=== PATIENT | female | born 1955 | race African-American/Black ===

== ENCOUNTER 2016-10-03 13:59 | Emergency (ER) | payer MEDICARE, OTHER ==
--- NOTE | 2016-10-03 14:52 | ERRECORD ---
[facility] EMERGENCY RECORD HPI TOOTHACHE (14:42 RWAG) CHIEF COMPLAINT: Patient presents for evaluation of toothache. HISTORIAN: History provided by patient. LOCATION: Symptoms are localized, most severe to "whole mouth" Widespread dental decay. QUALITY: Described as similar to previous episodes. SEVERITY: Maximum severity of symptoms mild, Currently symptoms are mild. TIME COURSE: Patient unable to describe onset of symptoms, There has been no change in the patient's symptoms over time. ASSOCIATED WITH: No associated symptoms. EXACERBATED BY: Patient's condition exacerbated by nothing. RELIEVED BY: Nothing tried for relief. ROS (14:43 RW) CONSTITUTIONAL: Negative constitutional review of systems. EYES: Negative eye review of systems. ENT: Negative ears, nose, throat review of systems. CARDIOVASCULAR: Negative cardiovascular review of systems. RESPIRATORY: Negative respiratory review of systems. GI: Negative gastrointestinal review of systems. GENITOURINARY FEMALE: Negative genitourinary review of systems. MUSCULOSKELETAL: Negative musculoskeletal review of systems. SKIN: Negative skin review of systems. NEUROLOGIC: Negative neurologic review of systems. ENDOCRINE: Negative endocrine review of systems. HEMO/LYMPHATIC: Normal hematologic/lymphatic system review. ALLERGIC/IMMUNOLOGIC: Normal allergy/immunologic system review. PSYCHIATRIC: Negative psychiatric review of systems. NOTES: All systems reviewed, negative except as described above. PAST MEDICAL HISTORY (14:15 [facility]) MEDICAL HISTORY: Flu vaccine not up to date, Tetanus immunization up to date, Pneumococcal vaccine not up to date, Past medical history includes history of hypertension, which has been treated, Patient is compliant, Past medical history includes history of hyperlipidemia, high cholesterol, Past medical history includes history of hypertension, which has been treated. FEMALE SURGICAL HISTORY: Surgical history of appendectomy, Surgical history of hernia repair, Surgical history of tubal ligation, LEFT ANKLE (JANUARY 2016), BLIAT TUBAL LIGATION, Surgical history of appendectomy, Surgical history of carpal tunnel surgery, Surgical history of hernia repair. PSYCHIATRIC HISTORY: Psychiatric history includes, bipolar disorder, depression, BIPOLAR. SOCIAL HISTORY: Patient denies alcohol use, Patient is a former drug user, abused CRACK cocaine, Patient has no smoking history, Lives at home, with family, Patient denies alcohol use, Patient is a former drug user. &a-1R&a+25V*p+0X*s5626E*c202B*c15G*c2P*p-0X&a-25V&a+1R Name: Pura Douglas : 1955 F61 MedRec: [id number] AcctNum: [id number] Prepared: ThuOct 03, 2016 16:17 by Interface Page 1 of 3 pMD [facility] EMERGENCY RECORD KNOWN ALLERGIES No Known Allergies (Unconfirmed) No Known Drug Allergies CURRENT MEDICATIONS doxepin: CAPSULE : Strength - 75 mg : ORAL Patient Dose: 75 mg Oral once a day. (14:11 CJ) RisperDAL: TABLET : Strength - 2 mg : ORAL Patient Dose: 5 mg Oral once a day. (14:11 CJ) CeleXA: TABLET : Strength - 20 mg : ORAL Patient Dose: Unknown. (14:12 CJEF) lisinopril: TABLET : Strength - 2.5 mg : ORAL Patient Dose: UNK mg Oral once a day. (14:12 CJ) VITAL SIGNS (14:07 CJ) VITAL SIGNS: BP: 164/90, Pulse: 118, Resp: 18, Temp: 99 (Oral), Pain: 10, O2 sat: 96 on Room Air, Time: 10/03/2016 14:07. PHYSICAL EXAM (14:43 RW) CONSTITUTIONAL: Vital signs reviewed. HEAD: Head exam normal. EYES: Eye exam normal. ENT: Ear exam normal, Nose exam normal, Pharynx exam normal, Uvula exam normal, Tonsil exam normal, Teeth with, dental caries. NECK: Neck exam normal. RESPIRATORY CHEST: Respiratory and chest exam normal. CARDIOVASCULAR: Cardiovascular assessment normal. ABDOMEN FEMALE: Abdominal exam normal. BACK: Back exam normal. UPPER EXTREMITY: Upper extremity exam normal. LOWER EXTREMITY: Lower extremity exam normal. NEURO: Neuro exam normal. SKIN: Skin exam normal. LYMPHATIC: Lymphatic exam normal. PSYCHIATRIC: Psychiatric exam normal. MEDICATION ADMINISTRATION SUMMARY Drug Name: [place], Dose Ordered: 1 tab(s), Route: Oral, Status: Held, Time: 14:39 10/03/2016, Detailed record available in Medication Service section. PROBLEM LIST No recorded problems &a-1R&a+25V*p+0X*y0285V*c202B*c15G*c2P*p-0X&a-25V&a+1R Name: Pura Douglas : 1955 F61 MedRec: [id number] AcctNum: [id number] Prepared: ThuOct 03, 2016 16:17 by Interface Page 2 of 3 pMD [facility] EMERGENCY RECORD DIAGNOSIS (14:29 RW) FINAL: PRIMARY: Dental caries. PRESCRIPTION (14:28 RW) Cipro tablet: TABLET : 500 mg : ORAL : Quantity: 1 Unit: tab(s) Route: ORAL Schedule: every 12 hours Dispense: 14 Unit: tab(s) May substitute. Refills: No Refills . NOTES: No Refills. Ultram: TABLET : 50 mg : ORAL : Quantity: 2 Unit: tab(s) Route: ORAL Schedule: every 6 hours PRN Dispense: 20 Unit: tab(s) May substitute. Refills: No Refills POTENTIAL SEVERE INTERACTION: doxepin oral Override Rationale: Benefits outweigh risks, No alternative available, Patient tolerated similar in past. NOTES: No Refills. DISPOSITION PATIENT: Disposition Type: Discharge, Disposition: *Discharge Home, Disposition Transport: Car, Condition: Improved. (14:29 [facility]) Patient left the department. (14:41 [facility]) Alex: FELIPA=ANDRE Curtis, Riana RWAG=MD Damian, Carlo &a-1R&a+25V*p+0X*m4528T*c202B*c15G*c2P*p-0X&a-25V&a+1R Name: Pura Douglas : 1955 F61 MedRec: [id number] AcctNum: [id number] Prepared: ThuOct 03, 2016 16:17 by Interface Page 3 of 3 pMD MTDD
--- NOTE | 2016-10-03 15:02 | PICIS ---
[facility] EMERGENCY RECORD TRIAGE (ThuOct 03, 2016 14:11 CJEF) TRIAGE NOTES: PT REPORTS ENTIRE TEETH PAIN, UPPER AND LOWER. PT WITH MULTIPLE AVULSED AND BROKEN TEETH THROUGH ENTIRE MOUTH. PT REPORTS THAT SHE HAS BEEN WITH PAIN FOR X3 DAYS AND HAS BEEN TRYING TO FIND A DENTIST WHO TAKES HER INSURANCE. PT REPORTS THAT THE PAIN ALSO EXTENDS TO THE LEFT CHEEK. PT REPORTS THAT SHE HAS TAKEN TRAZADONE, TYLENOL 3,AND TRAMADOL WITH NO RELIEF TO THE PAIN. PT WITH PHMX OF "CRACK' USE. (ThuOct 03, 2016 14:11 CJEF) PATIENT: NAME: Pura Douglas, AGE: 61, GENDER: female, : Sun 1955, TIME OF GREET: ThuOct 03, 2016 14:00, PREFERRED LANGUAGE: Greek, ETHNICITY: Not or , FALL RISK: YES, ECODE BILLING MAP: [facility], SSN: [id number], Zip Code: [address], KG WEIGHT: 68.04, PHONE: , , , PERSON ID: [id number], PCP: MD Allen Olayemi. (ThuOct 03, 2016 14:11 CJEF) COMPLAINT: TOOTH PAIN. (ThuOct 03, 2016 14:11 CJEF) ADMISSION: URGENCY: 4 Non Urgent, ADMISSION SOURCE: Home, TRANSPORT: Walk-in, BED: TRIAGE. (ThuOct 03, 2016 14:11 CJEF) ASSESSMENT: Assessment: TEETH PAIN. (14:15 CJEF) PAIN: Patient complains of pain described as, Location TEETH. (14:15 CJEF) IMMUNIZATIONS: Flu vaccine not up to date, Tetanus immunization up to date, Pneumococcal vaccine not up to date. (14:15 CJEF) SIRS SCORING: Heart Rate 110-139 (2), Temp range 96.8-101.1 (0), respiratory rate 12-24 (0), Mental Status altered: no (0), Total SIRS Score 2, Yes, Infection or Suspected Infection. (14:15 CJEF) SIRS NOTIFICATION: Yes, Infection or Suspected Infection. (14:15 CJEF) TRIAGE SCREENING: Patient denies suicidal ideation, Patient denies presence of domestic violence. (14:15 CJEF) LMP: LMP: Menopause. (14:15 CJEF) PROVIDERS: TRIAGE NURSE: Riana Curtis RN. (ThuOct 03, 2016 14:11 CJEF) VITAL SIGNS: BP 164/90, Pulse 118, Resp 18, Temp 99, (Oral), Pain 10, O2 Sat 96, on Room Air, Time 10/03/2016 14:07. (14:07 CJEF) PREVIOUS VISIT ALLERGIES: No Known Drug Allergies. (ThuOct 03, 2016 14:11 CJEF) No Known Drug Allergies. (14:15 CJEF) KNOWN ALLERGIES No Known Allergies (Unconfirmed) No Known Drug Allergies CURRENT MEDICATIONS doxepin: CAPSULE : Strength - 75 mg : ORAL Patient Dose: 75 mg Oral once a day. (14:11 CJEF) RisperDAL: &a-1R&a+25V*p+0X*f5108O*c202B*c15G*c2P*p-0X&a-25V&a+1R Name: Pura Douglas Lea : 1955 F61 MedRec: [id number] AcctNum: [id number] Prepared: ThuOct 03, 2016 16:23 by Interface Page 1 of 5 pMD [facility] EMERGENCY RECORD TABLET : Strength - 2 mg : ORAL Patient Dose: 5 mg Oral once a day. (14:11 CJEF) CeleXA: TABLET : Strength - 20 mg : ORAL Patient Dose: Unknown. (14:12 CJEF) lisinopril: TABLET : Strength - 2.5 mg : ORAL Patient Dose: UNK mg Oral once a day. (14:12 CJEF) VITAL SIGNS (14:07 CJEF) VITAL SIGNS: BP: 164/90, Pulse: 118, Resp: 18, Temp: 99 (Oral), Pain: 10, O2 sat: 96 on Room Air, Time: 10/03/2016 14:07. NURSING ASSESSMENT: DENTAL (14:16 CJEF) CONSTITUTIONAL: Complex assessment performed, Patient arrives ambulatory, Gait steady, History obtained from patient, Patient appears, uncomfortable, Patient cooperative, Patient alert, Oriented to person, place and time, Skin warm, Skin dry, Skin normal in color, Mucous membranes pink, Mucous membranes moist, Patient, poorly groomed, PT REPORTS ENTIRE TEETH PAIN, UPPER AND LOWER. PT WITH MULTIPLE AVULSED AND BROKEN TEETH THROUGH ENTIRE MOUTH. PT REPORTS THAT SHE HAS BEEN WITH PAIN FOR X3 DAYS AND HAS BEEN TRYING TO FIND A DENTIST WHO TAKES HER INSURANCE. PT REPORTS THAT THE PAIN ALSO EXTENDS TO THE LEFT CHEEK. PT REPORTS THAT SHE HAS TAKEN TRAZADONE, TYLENOL 3,AND TRAMADOL WITH NO RELIEF TO THE PAIN. PT WITH PHMX OF "CRACK' USE. PAIN: aching pain, to left upper back tooth (teeth), to right upper back tooth (teeth), to upper teeth, to left lower back tooth (teeth), to right lower back tooth (teeth), to lower teeth, to the left upper jaw, to the right upper jaw, to the left lower jaw, right lower jaw, constant, on a scale 0-10 patient rates pain as 10, ALL OVER TEETH PAIN. DENTAL: Dental assessment findings include mouth with, poor dental hygiene, bad breath (halitosis), Teeth abnormal:, avulsed primary tooth (teeth), avulsed secondary tooth (teeth), broken primary tooth (teeth), broken secondary tooth (teeth), loose primary tooth (teeth), loose secondary tooth (teeth), missing primary tooth (teeth), missing secondary tooth (teeth), gums tender. NOTES: Patient tolerated procedure well. SAFETY: Side rails up, Cart/Stretcher in lowest position, Family at bedside, Call light within reach, Hospital ID band on. NURSING PROCEDURE: DISCHARGE NOTE (14:40 [facility]) DISCHARGE: Patient discharged to home, ambulating without assistance, driving self, unaccompanied, Summary of Care printed/ provided, Patient requested and was provided an electronic copy of &a-1R&a+25V*p+0X*h5451J*c202B*c15G*c2P*p-0X&a-25V&a+1R Name: Pura Douglas : 1955 F61 MedRec: [id number] AcctNum: [id number] Prepared: ThuOct 03, 2016 16:23 by Interface Page 2 of 5 pMD [facility] EMERGENCY RECORD Discharge Instructions, Transition record given to patient, Discharge instructions given to patient, Simple or moderate discharge teaching performed, Prescriptions given and instructions on side effects given, Medication reconciliation form given, Above person(s) verbalized understanding of discharge instructions and follow-up care, Patient treated and evaluated by physician. BELONGINGS: Belongings remain with patient. NOTES: Patient tolerated procedure well. SAFETY: Side rails up, Cart/Stretcher in lowest position, Family at bedside, Call light within reach, Hospital ID band on. MEDICATION ADMINISTRATION SUMMARY Drug Name: [place], Dose Ordered: 1 tab(s), Route: Oral, Status: Held, Time: 14:39 10/03/2016, Detailed record available in Medication Service section. MEDICATION SERVICE (14:26 RW) [place]: Order: [place] (hydrocodone bitartrate/acetaminophen) - Dose: 1 tab(s) : Oral Schedule: Now Ordered by: Carlo Salgado MD Entered by: Carlo Salgado MD ThuOct 03, 2016 14:26 , Held by: Riana Curtis RN ThuOct 03, 2016 14:39 Reason: Patient refused:NO RIDE HOME. HPI TOOTHACHE (14:42 RWAG) CHIEF COMPLAINT: Patient presents for evaluation of toothache. HISTORIAN: History provided by patient. LOCATION: Symptoms are localized, most severe to "whole mouth" Widespread dental decay. QUALITY: Described as similar to previous episodes. SEVERITY: Maximum severity of symptoms mild, Currently symptoms are mild. TIME COURSE: Patient unable to describe onset of symptoms, There has been no change in the patient's symptoms over time. ASSOCIATED WITH: No associated symptoms. EXACERBATED BY: Patient's condition exacerbated by nothing. RELIEVED BY: Nothing tried for relief. ROS (14:43 RW) CONSTITUTIONAL: Negative constitutional review of systems. EYES: Negative eye review of systems. ENT: Negative ears, nose, throat review of systems. CARDIOVASCULAR: Negative cardiovascular review of systems. RESPIRATORY: Negative respiratory review of systems. GI: Negative gastrointestinal review of systems. GENITOURINARY FEMALE: Negative genitourinary review of systems. MUSCULOSKELETAL: Negative musculoskeletal review of systems. SKIN: Negative skin review of systems. &a-1R&a+25V*p+0X*h8734W*c202B*c15G*c2P*p-0X&a-25V&a+1R Name: Pura Douglas : 1955 F61 MedRec: [id number] AcctNum: [id number] Prepared: ThuOct 03, 2016 16:23 by Interface Page 3 of 5 pMD [facility] EMERGENCY RECORD NEUROLOGIC: Negative neurologic review of systems. ENDOCRINE: Negative endocrine review of systems. HEMO/LYMPHATIC: Normal hematologic/lymphatic system review. ALLERGIC/IMMUNOLOGIC: Normal allergy/immunologic system review. PSYCHIATRIC: Negative psychiatric review of systems. NOTES: All systems reviewed, negative except as described above. PAST MEDICAL HISTORY (14:15 [facility]) MEDICAL HISTORY: Flu vaccine not up to date, Tetanus immunization up to date, Pneumococcal vaccine not up to date, Past medical history includes history of hypertension, which has been treated, Patient is compliant, Past medical history includes history of hyperlipidemia, high cholesterol, Past medical history includes history of hypertension, which has been treated. FEMALE SURGICAL HISTORY: Surgical history of appendectomy, Surgical history of hernia repair, Surgical history of tubal ligation, LEFT ANKLE (JANUARY 2016), BLIAT TUBAL LIGATION, Surgical history of appendectomy, Surgical history of carpal tunnel surgery, Surgical history of hernia repair. PSYCHIATRIC HISTORY: Psychiatric history includes, bipolar disorder, depression, BIPOLAR. SOCIAL HISTORY: Patient denies alcohol use, Patient is a former drug user, abused CRACK cocaine, Patient has no smoking history, Lives at home, with family, Patient denies alcohol use, Patient is a former drug user. PHYSICAL EXAM (14:43 [facility]) CONSTITUTIONAL: Vital signs reviewed. HEAD: Head exam normal. EYES: Eye exam normal. ENT: Ear exam normal, Nose exam normal, Pharynx exam normal, Uvula exam normal, Tonsil exam normal, Teeth with, dental caries. NECK: Neck exam normal. RESPIRATORY CHEST: Respiratory and chest exam normal. CARDIOVASCULAR: Cardiovascular assessment normal. ABDOMEN FEMALE: Abdominal exam normal. BACK: Back exam normal. UPPER EXTREMITY: Upper extremity exam normal. LOWER EXTREMITY: Lower extremity exam normal. NEURO: Neuro exam normal. SKIN: Skin exam normal. LYMPHATIC: Lymphatic exam normal. PSYCHIATRIC: Psychiatric exam normal. EVENTS TRANSFER: Triage to Emergency Triage. (ThuOct 03, 2016 14:11 [facility]) Emergency Triage to Main ED -03. (14:15 [facility]) &a-1R&a+25V*p+0X*l5314E*c202B*c15G*c2P*p-0X&a-25V&a+1R Name: Pura Douglas : 1955 F61 MedRec: [id number] AcctNum: [id number] Prepared: ThuOct 03, 2016 16:23 by Interface Page 4 of 5 pMD [facility] EMERGENCY RECORD Removed from Emergency Main ED -03. (14:41 CJ) PROBLEM LIST No recorded problems DIAGNOSIS (14:29 RWAG) FINAL: PRIMARY: Dental caries. DISPOSITION PATIENT: Disposition Type: Discharge, Disposition: *Discharge Home, Disposition Transport: Car, Condition: Improved. (14:29 RWAG) Patient left the department. (14:41 CJ) INSTRUCTION (14:29 RWAG) DISCHARGE: DENTAL PAIN. FOLLOWUP: MD Tiffany, Sae, [facility], [address] [place] [address], , Follow up with Primary Care Physician in 5 days. SPECIAL: Follow-up with your PCP. PRESCRIPTION (14:28 RWAG) Cipro tablet: TABLET : 500 mg : ORAL : Quantity: 1 Unit: tab(s) Route: ORAL Schedule: every 12 hours Dispense: 14 Unit: tab(s) May substitute. Refills: No Refills . NOTES: No Refills. Ultram: TABLET : 50 mg : ORAL : Quantity: 2 Unit: tab(s) Route: ORAL Schedule: every 6 hours PRN Dispense: 20 Unit: tab(s) May substitute. Refills: No Refills POTENTIAL SEVERE INTERACTION: doxepin oral Override Rationale: Benefits outweigh risks, No alternative available, Patient tolerated similar in past. NOTES: No Refills. IMAGING (14:42 [facility]) *DISCHARGE INSTRUCTIONS RECEIPT: Image captured from scanner. *SUPPLY CHARGE SHEET: Image captured from scanner. ADMIN (16:14 RW) DIGITAL SIGNATURE: MD Damian, Carlo. Alex: [facility]=ANDRE Curtis, Riana RWAG=MD Damian, Carlo &a-1R&a+25V*p+0X*p5272J*c202B*c15G*c2P*p-0X&a-25V&a+1R Name: Pura Douglas : 1955 F61 MedRec: [id number] AcctNum: [id number] Prepared: ThuOct 03, 2016 16:23 by Interface Page 5 of 5 pMD [facility] MEDICATION RECONCILIATION You were seen in the Emergency Department on: ThuOct 03, 2016 KNOWN ALLERGIES No Known Allergies (Unconfirmed) No Known Drug Allergies HOME MEDICATIONS CONTINUE PRESCRIBED CeleXA : TABLET : Strength - 20 mg : ORAL Continue as prescribed Patient had been taking: Dose unknown doxepin : CAPSULE : Strength - 75 mg : ORAL Continue as prescribed Patient had been takin mg Oral once a day. lisinopril : TABLET : Strength - 2.5 mg : ORAL Continue as prescribed Patient had been taking: UNK mg Oral once a day. RisperDAL : TABLET : Strength - 2 mg : ORAL Continue as prescribed Patient had been takin mg Oral once a day. Notes from the emergency department Reviewed with patient PRESCRIPTIONS (2) Printed (2) Cipro tablet : TABLET : 500 mg : ORAL Quantity: 1, Unit: tab(s), Route: ORAL, Schedule: every 12 hours, Dispense: 14 Unit: tab(s) &a-1R&a+25V*p+0X*o9190T*c202B*c15G*c2P*p-0X&a-25V&a+1R Name: Pura Douglas : 1955 F61 MedRec: [id number] AcctNum: [id number] Prepared: ThuOct 03, 2016 16:23 by Interface pMD KASI
== END 2016-10-03 14:40 | disposition home or self-care (01) ==
LOC: MADERS 13:59
DX: K02.9 Dental caries, unspecified (principal); I10 Essential (primary) hypertension; E78.5 Hyperlipidemia, unspecified; F31.9 Bipolar disorder, unspecified; F32.9 Major depressive disorder, single episode, unspecified; Z79.899 Other long term (current) drug therapy
CPT/HCPCS: 99282

== ENCOUNTER 2017-03-04 16:07 | Outpatient (CLI) | payer MEDICARE ==
--- NOTE | 2017-03-04 17:07 | CT ---
CT OF THE LEFT HINDFOOT 03/04/17 CLINICAL HISTORY: Prior fracture with subsequent fixation. FINDINGS: There is plate and screw fixation with laterally located metallic plate and several metallic screws traversing the anterior and posterior aspect of the calcaneus. Multifocal degenerative cyst formatio n is present involving the postoperative calcaneus, as well as in the hindfoot and midfoot. Focal re lative demineralization involving the lateral aspect of the talar dome is present without associated subchondral collapse. Lisfranc joint is maintained. Scattered soft tissue edema. There is a heterot opic density adjacent the cuboid, well circumscribed, and chronic in appearance. IMPRESSION: Postoperative left hindfoot. The fixated, healed fracture demonstrates near anatomic alignment. There is multifocal degenerative cyst formation. No obvious hardware complication is seen within kumari itations, as there is prominent streak artifact. POS: [facility]
== END 2017-03-04 16:08 | disposition home or self-care (01) ==
LOC: MADRAD 16:07
PROVIDERS: ATTEND Orthopaedic Surgery
DX: S92.002D Unspecified fracture of left calcaneus, subsequent encounter for fracture with routine healing (principal)

== ENCOUNTER 2017-06-18 14:14 | Outpatient (CLI) | payer MEDICARE ==
--- NOTE | 2017-06-18 16:50 | RAD ---
LEFT FOOT RADIOGRAPHS THREE VIEWS: 06/18/17 PROVIDED CLINICAL HISTORY: Postop. FINDINGS: Comparison 04/03/16. Interval removal of the plate and screws previously seen. Interval placement of two large partially threaded cannulated lag screws traversing the calcaneus and subtalar joint regions. There is diffuse regional osteopenia. There is no evidence for an acute fracture or other acute osseous abnormality. IMPRESSION: Interval postsurgical changes as above. POS: [facility]
== END 2017-06-18 14:15 | disposition home or self-care (01) ==
LOC: MADRAD 14:14
PROVIDERS: ATTEND Orthopaedic Surgery
DX: M95.8 Other specified acquired deformities of musculoskeletal system (principal); Z98.890 Other specified postprocedural states

== ENCOUNTER 2017-08-13 13:28 | Outpatient (CLI) | payer MEDICARE ==
--- NOTE | 2017-08-13 15:08 | RAD ---
3 VIEWS LEFT FOOT: Date: 08/13/17 INDICATION: Left foot pain. FINDINGS: The two separate lag screws fixating the patient's healed calcaneal fracture is unchanged. Scattered osteoarthritic change is similar appearing. No acute osseous abnormality is evident. IMPRESSION: Stable postoperative left foot. No acute osseous abnormality. POS: [facility]
== END 2017-08-13 13:29 | disposition home or self-care (01) ==
LOC: MADRAD 13:28
PROVIDERS: ATTEND Orthopaedic Surgery
DX: Z87.81 Personal history of (healed) traumatic fracture (principal); Z98.890 Other specified postprocedural states

== ENCOUNTER 2018-07-06 15:02 | Emergency (ER) | payer MEDICARE, OTHER | END 2018-07-06 16:00 | disposition home or self-care (01) | LOC: MADERS 15:02 | DX: K02.9 Dental caries, unspecified (principal); I10 Essential (primary) hypertension; K21.9 Gastro-esophageal reflux disease without esophagitis; E78.5 Hyperlipidemia, unspecified; F31.9 Bipolar disorder, unspecified; Z79.899 Other long term (current) drug therapy | CPT/HCPCS: 99282 ==

== ENCOUNTER 2018-07-26 10:26 | Emergency (ER) | payer MEDICARE | END 2018-07-26 11:20 | disposition home or self-care (01) | LOC: MADERS 10:26 | DX: M79.661 Pain in right lower leg (principal); M25.561 Pain in right knee; K21.9 Gastro-esophageal reflux disease without esophagitis; I10 Essential (primary) hypertension; E78.5 Hyperlipidemia, unspecified; F31.9 Bipolar disorder, unspecified; Z79.899 Other long term (current) drug therapy | CPT/HCPCS: 99283 ==

== ENCOUNTER 2018-11-19 16:52 | Emergency (ER) | payer MEDICARE ==
[~2018-11-19 16:52] MED LIST: NS 0.9% w/ 20 MEQ KCL 1,000 ML BAG ONE
[2018-11-19] MEDS ORDERED: Sodium Chloride 0.9% 1,000 ML ONE (17:59)
[2018-11-19] MEDS ORDERED: Metoclopramide HCl 10 MG/2 ML VIAL ONE (18:00)
--- NOTE | 2018-11-19 18:11 | RAD ---
CHEST ONE VIEW 11/19/18 INDICATION: Syncope. COMPARISON: None. FINDINGS: The lungs are clear. Heart size is normal. No acute osseous abnormality is noted. IMPRESSION: No acute cardiopulmonary abnormality. POS: [facility]
--- NOTE | 2018-11-19 18:12 | CT ---
CT BRAIN NONCONTRAST: 11/19/18 HISTORY: 63-year-old female status post syncope. FINDINGS: There is no midline shift or any other mass effect. There is no evidence of acute intracranial hemor rhage, large cortical infarct, obstructive hydrocephalus, or extraaxial fluid collection. The calvar ium is intact. IMPRESSION: No acute intracranial findings. jn [] POS: [facility]
[2018-11-19 18:45] LABS: #Lymphocytes 1.7 thou/uL (1.20-3.40); #Monocytes 0.7 thou/uL (0.11-0.59); #Neutrophils 4.8 thou/uL (1.40-6.50); %Basophils 0.7 % (0.0-1.0); %Eosinophils 0.4 % (0.0-10.0); %Lymphocytes 23.9 % (21.0-51.0); %Monocytes 8.9 % (0.0-10.0); %Neutrophils 66.1 % (42.0-75.0); Hemoglobin 12.5 g/dL (12.0-16.0); Mean Corpuscular HGB CONC 33.5 g/dL (32.0-36.0); Mean Corpuscular Hemoglobin 32.2 pg (27.0-31.0); Mean Corpuscular Volume 96.2 fL (78.0-98.0); Mean Platelet Volume 6.8 fL (7.4-10.4); Platelet Count 270 thou/uL (130-400); RBC Distribution Width 13.4 % (11.5-14.5); Red Blood Cell (RBC) Count 3.88 mill/uL (4.20-5.40); White Blood Cell (WBC) Count 7.3 thou/uL (4.8-10.8)
[2018-11-19 18:54] LABS: ALT (SGPT) 19 U/L (8-55); AST (SGOT) 32 U/L (5-34); Acetaminophen Less than 6.0 mcg/mL (10.0-30.0); Albumin 3.5 g/dL (3.4-4.8); Alcohol Less than 10 mg/dL (Less than 10); Alkaline Phosphatase 75 U/L (40-150); Anion Gap 14 mmol/L (10-20); BUN (Urea Nitrogen) Less than 4 mg/dL (9.8-20.1); Bilirubin, Total 0.3 mg/dL (0.2-1.2); Calc. Creatinine Clearance 0 mL/min (70-130); Calcium 8.8 mg/dL (7.8-10.44); Carbon Dioxide 24 mmol/L (23-31); Chloride 108 mmol/L (98-107); Estimated GFR-MDRD 60; Globulin 3.1 g/dL (2.4-3.5); Glucose 116 mg/dL (80-115); Protein, Total 6.6 g/dL (6.0-8.3); Salicylate Less than 8.0 mg/dL (15.0-30.0); Sodium 143 mmol/L (136-145)
[2018-11-19 19:16] LABS: Bilirubin Negative (Negative); Blood, Urine Negative (Negative); Clarity Clear (Clear); Glucose, Urine (Dipstick) Negative (Negative); Leukocyte Negative (Negative); Nitrite Negative (Negative); Protein, Urine (Dipstick) Negative (Neg-Trace); Urobilinogen 0.2 mg/dL (0.2-1.0)
[2018-11-19] MEDS ORDERED: Potassium Chloride 20 MEQ TAB ONE (19:18)
[2018-11-19 19:28] LABS: Amphetamine Not Detected (NotDetected); Barbiturates Screen Not Detected (NotDetected); Benzodiazepine Screen Not Detected (NotDetected); Cocaine Metabolite Screen Detected (NotDetected); Medtox Control Line Valid? VALID (VALID); Methadone Not Detected (NotDetected); Methamphetamine Not Detected (NotDetected); Opiate Screen Not Detected (NotDetected); Oxycodone Screen Not Detected (NotDetected); Phencyclidine (PCP) Not Detected (NotDetected); THC/Cannabinoid Screen Not Detected (NotDetected); Tricyclic Screen Detected (NotDetected)
== END 2018-11-19 21:10 | disposition short-term general hospital (02) ==
LOC: MADERS 16:52
DX: I45.81 Long QT syndrome (principal); R55 Syncope and collapse; R94.31 Abnormal electrocardiogram [ECG] [EKG]; K21.9 Gastro-esophageal reflux disease without esophagitis; I10 Essential (primary) hypertension; E78.5 Hyperlipidemia, unspecified; F31.9 Bipolar disorder, unspecified; Z79.899 Other long term (current) drug therapy
CPT/HCPCS: 36415; 51701; 70450; 71045; 80053; 80306; 80307; 81003; 83605; 83735; 84484; 85025; 87040; 93005; 94760; 96361; 96374; A4353; J2765; J7050

== ENCOUNTER 2020-02-21 12:26 | Outpatient (CLI) | payer MEDICARE ==
--- NOTE | 2020-02-21 14:25 | RAD ---
CERVICAL SPINE 5 VIEWS: HISTORY: Back pain. FINDINGS: Very pronounced hypertrophic osteophytes are seen from the cervical vertebrae. These produce mass ef fect on the prevertebral space and hypopharynx. Large anterior bridging osteophytes are seen at the C3-4, C4-5, C5-6 levels. Loss of disk space at C3-4. Disk space narrowing at the C6-7 disk. IMPRESSION: Pronounced hypertrophic spurring from the anterior cervical vertebrae with large anterior bridging os teophytes which produce mass effect on the hypopharynx. POS: [facility]
== END 2020-02-21 12:27 | disposition home or self-care (01) ==
LOC: MADRAD 12:26
PROVIDERS: ATTEND Family Medicine
DX: S13.9XXA Sprain of joints and ligaments of unspecified parts of neck, initial encounter (principal); M46.02 Spinal enthesopathy, cervical region; M25.78 Osteophyte, vertebrae
CPT/HCPCS: 72050

== ENCOUNTER 2020-08-28 03:44 | Emergency (ER) | payer MEDICARE ==
[2020-08-28] MEDS ORDERED: Sodium Chloride 0.9% 1,000 ML ONE (04:03)
[2020-08-28] MEDS ORDERED: Aspirin Chewable 81 MG TAB ONE (04:11)
[2020-08-28 04:29] LABS: #Basophils 0.1 thou/uL (0.0-0.2); #Eosinphils 0.1 thou/uL (0.0-0.7); #Lymphocytes 2.1 thou/uL (1.20-3.40); #Monocytes 0.5 thou/uL (0.11-0.59); #Neutrophils 2.3 thou/uL (1.40-6.50); %Basophils 1.5 % (0.0-1.0); %Eosinophils 2.1 % (0.0-10.0); %Monocytes 10.4 % (0.0-10.0); Mean Corpuscular Hemoglobin 31.8 pg (27.0-31.0); Mean Corpuscular Volume 96.4 fL (78.0-98.0); Platelet Count 256 thou/uL (130-400); RBC Distribution Width 12.5 % (11.5-14.5); Red Blood Cell (RBC) Count 3.78 mill/uL (4.20-5.40); White Blood Cell (WBC) Count 5.1 thou/uL (4.8-10.8)
[2020-08-28 04:44] LABS: ALT (SGPT) 28 U/L (8-55); AST (SGOT) 34 U/L (5-34); Albumin 3.8 g/dL (3.4-4.8); Alkaline Phosphatase 74 U/L (40-110); Anion Gap 15 mmol/L (10-20); BUN (Urea Nitrogen) 27 mg/dL (9.8-20.1); Bilirubin, Total 0.3 mg/dL (0.2-1.2); CK (CPK) 50 U/L (29-168); Calc. Creatinine Clearance 0 mL/min (70-130); Calcium 8.9 mg/dL (7.8-10.44); Carbon Dioxide 21 mmol/L (23-31); Chloride 106 mmol/L (98-107); Globulin 3.7 g/dL (2.4-3.5); Glucose 104 mg/dL (80-115); Protein, Total 7.5 g/dL (6.0-8.3); Sodium 138 mmol/L (136-145)
[2020-08-28 05:14] LABS: CKMB 0.8 ng/mL (0-6.6)
[2020-08-28 05:43] LABS: Bilirubin Negative (Negative); Blood, Urine Negative (Negative); Clarity Clear (Clear); Glucose, Urine (Dipstick) Negative (Negative); Ketone, Urine Negative (Negative); Leukocyte Negative (Negative); Nitrite Negative (Negative); Protein, Urine (Dipstick) Negative (Neg-Trace); Urobilinogen 0.2 mg/dL (Less than 2)
[2020-08-28 05:47] LABS: Specific Gravity, Urine 1.005 (1.002-1.036)
[2020-08-28 05:57] LABS: Amphetamine Not Detected (NotDetected); Barbiturates Screen Not Detected (NotDetected); Benzodiazepine Screen Not Detected (NotDetected); Cocaine Metabolite Screen Detected (NotDetected); Medtox Control Line Valid? VALID (VALID); Methadone Not Detected (NotDetected); Methamphetamine Not Detected (NotDetected); Opiate Screen Detected (NotDetected); Oxycodone Screen Not Detected (NotDetected); Phencyclidine (PCP) Not Detected (NotDetected); THC/Cannabinoid Screen Not Detected (NotDetected); Tricyclic Screen Not Detected (NotDetected)
[2020-08-28] MEDS ORDERED: Acetaminophen 500 MG TAB ONE (06:30)
--- NOTE | 2020-08-28 08:16 | CT ---
PRELIMINARY REPORT/[facility]/EMERGENCY AFTER HOURS PROCEDURE: EXAM: CT Head Without Intravenous Contrast. CLINICAL HISTORY: ER PATIENT; BROUGHT IN BY AMBULANCE DUE TO ALTERED MENTAL STATUS; LBP; DIZZINESS TECHNIQUE: Axial computed tomography images of the head/brain without intravenous contrast. COMPARISON: None provided. FINDINGS: BRAIN: No acute intraparenchymal hemorrhage. No mass lesion. No CT evidence for acute territorial infarct. N o midline shift or extra-axial collection. VENTRICLES: No hydrocephalus. ORBITS: The orbits are unremarkable. SINUSES AND MASTOIDS: The paranasal sinuses and mastoid air cells are clear. SOFT TISSUES: No significant facial or scalp soft tissue swelling evident. No radiopaque foreign body is seen. BONES: No acute skull fracture. IMPRESSION: No acute intracranial abnormality. ELECTRONICALLY SIGNED BY: Ramon Andrews MD Aug 28, 2020 4:35:21 AM [employer] This report is intended for review by the ordering physician only, in accordance of law. If you recei ve this report in error, please call [facility] at [phone]. FINAL REPORT EMERGENT AFTER HOURS CT OF THE BRAIN: COMPARISON: 11/19/2018. HISTORY: Altered mental status. FINDINGS/IMPRESSION: I agree with the findings and impression given in the preliminary report per [facility] physici an. No evidence of acute intracranial abnormality. POS: [facility]
--- NOTE | 2020-08-28 08:29 | RAD ---
AP CHEST: HISTORY: Chest pain. COMPARISON: 11/19/2018. FINDINGS: Lungs appear clear. No infiltrate or vascular congestion. Heart and mediastinum unremarkable. IMPRESSION: No acute process. POS: [facility]
== END 2020-08-28 08:14 | disposition home or self-care (01) ==
LOC: MADERS 03:44
DX: I95.9 Hypotension, unspecified (principal); F14.10 Cocaine abuse, uncomplicated; E86.0 Dehydration; N19 Unspecified kidney failure; K21.9 Gastro-esophageal reflux disease without esophagitis; E78.5 Hyperlipidemia, unspecified; E78.00 Pure hypercholesterolemia, unspecified; Z79.01 Long term (current) use of anticoagulants; Z79.899 Other long term (current) drug therapy
CPT/HCPCS: 36415; 70450; 71045; 80053; 80306; 81003; 82550; 82553; 83880; 84443; 84484; 85025; 93005; 94760; J7050

== ENCOUNTER 2020-11-05 09:07 | Emergency (ER) | payer MEDICARE ==
[2020-11-05 22:51] LABS: SARS-CoV-2 PCR by NAA Not Detected (NotDetected)
== END 2020-11-05 09:40 | disposition home or self-care (01) ==
LOC: MADERS 09:07
DX: Z20.822 Contact with and (suspected) exposure to COVID-19 (principal); K21.9 Gastro-esophageal reflux disease without esophagitis; E78.5 Hyperlipidemia, unspecified; E78.00 Pure hypercholesterolemia, unspecified
CPT/HCPCS: 87635; 99283; U0003; U0005

== ENCOUNTER 2021-06-17 18:45 | Emergency (ER) | payer MEDICARE ==
[2021-06-17 19:19] LABS: #Eosinphils 0.1 thou/uL (0.0-0.7); #Monocytes 0.4 thou/uL (0.11-0.59); #Neutrophils 1.5 thou/uL (1.40-6.50); %Eosinophils 1.5 % (0.0-10.0); %Lymphocytes 49.9 % (21.0-51.0); %Monocytes 9.6 % (0.0-10.0); %Neutrophils 37.9 % (42.0-75.0); Hemoglobin 14.9 g/dL (12.0-16.0); Mean Corpuscular HGB CONC 31.8 g/dL (32.0-36.0); Mean Corpuscular Hemoglobin 30.9 pg (27.0-31.0); Mean Corpuscular Volume 97.4 fL (78.0-98.0); Mean Platelet Volume 6.1 fL (7.4-10.4); Platelet Count 335 thou/uL (130-400); RBC Distribution Width 12.3 % (11.5-14.5); Red Blood Cell (RBC) Count 4.81 mill/uL (4.20-5.40); White Blood Cell (WBC) Count 3.9 thou/uL (4.8-10.8)
[2021-06-17 19:35] LABS: ALT (SGPT) 15 U/L (8-55); AST (SGOT) 17 U/L (5-34); Albumin 4.1 g/dL (3.4-4.8); Alkaline Phosphatase 101 U/L (40-110); Anion Gap 12 mmol/L (10-20); BUN (Urea Nitrogen) 9 mg/dL (9.8-20.1); Bilirubin, Total 0.3 mg/dL (0.2-1.2); CK (CPK) 41 U/L (29-168); Calc. Creatinine Clearance 0 mL/min (70-130); Calcium 10.3 mg/dL (7.8-10.44); Carbon Dioxide 26 mmol/L (23-31); Chloride 104 mmol/L (98-107); Globulin 3.9 g/dL (2.4-3.5); Glucose 109 mg/dL (80-115); Potassium 3.6 mmol/L (3.5-5.1); Sodium 138 mmol/L (136-145)
[2021-06-17] MEDS ORDERED: Ondansetron ODT 4 MG TAB ONE (19:56)
[2021-06-17] MEDS ORDERED: Ketorolac Tromethamine 30 MG/ML VIAL ONE (19:56)
== END 2021-06-17 21:35 | disposition home or self-care (01) ==
LOC: MADERS 18:45
DX: M48.56XA Collapsed vertebra, not elsewhere classified, lumbar region, initial encounter for fracture (principal); K21.9 Gastro-esophageal reflux disease without esophagitis; I10 Essential (primary) hypertension; E78.5 Hyperlipidemia, unspecified; E78.00 Pure hypercholesterolemia, unspecified; F17.210 Nicotine dependence, cigarettes, uncomplicated
CPT/HCPCS: 36415; 72100; 72131; 80053; 82550; 85025; 96372; J1885; Q0162

== ENCOUNTER 2021-09-04 13:22 | Emergency (ER) | payer MEDICARE ==
[2021-09-04] MEDS ORDERED: Orphenadrine Citrate 60 MG/2 ML VIAL ONE ×2 (13:39→13:40)
== END 2021-09-04 13:45 ==
LOC: MADERS 13:22
DX: M54.41 Lumbago with sciatica, right side (principal); I10 Essential (primary) hypertension; E78.5 Hyperlipidemia, unspecified; E78.00 Pure hypercholesterolemia, unspecified; K21.9 Gastro-esophageal reflux disease without esophagitis; F17.210 Nicotine dependence, cigarettes, uncomplicated
CPT/HCPCS: 99283; J2360

== ENCOUNTER 2021-12-16 16:20 | Emergency (ER) | payer MEDICARE ==
[2021-12-16] MEDS ORDERED: Orphenadrine Citrate 60 MG/2 ML VIAL ONE (17:09)
[2021-12-16] MEDS ORDERED: Ketorolac Tromethamine 30 MG/ML VIAL ONE (17:09)
== END 2021-12-16 17:32 | disposition home or self-care (01) ==
LOC: MADERS 16:20
DX: M48.061 Spinal stenosis, lumbar region without neurogenic claudication (principal); M54.41 Lumbago with sciatica, right side; I10 Essential (primary) hypertension; F17.210 Nicotine dependence, cigarettes, uncomplicated
CPT/HCPCS: 96372; 99283; J1885; J2360

== ENCOUNTER 2022-09-20 10:57 | Emergency (ER) | payer MEDICARE ==
[2022-09-20] MEDS ORDERED: predniSONE 20 MG TAB ONE (11:55)
== END 2022-09-20 12:03 | disposition home or self-care (01) ==
LOC: MADERS 10:57
DX: M54.41 Lumbago with sciatica, right side (principal); I10 Essential (primary) hypertension; K21.9 Gastro-esophageal reflux disease without esophagitis; E78.2 Mixed hyperlipidemia; F17.210 Nicotine dependence, cigarettes, uncomplicated; Z79.899 Other long term (current) drug therapy
CPT/HCPCS: 99283; J7512

== ENCOUNTER 2022-12-25 06:41 | Emergency (ER) | payer MEDICARE ==
[2022-12-25] MEDS ORDERED: Ondansetron ODT 4 MG TAB ONE (06:54)
[2022-12-25] MEDS ORDERED: Morphine 4 MG/ML VIAL ONE (07:00)
[2022-12-25 07:27] LABS: #Lymphocytes 1.3 thou/uL (1.20-3.40); #Monocytes 0.3 thou/uL (0.11-0.59); #Neutrophils 3.6 thou/uL (1.40-6.50); %Basophils 0.8 % (0.0-1.0); %Eosinophils 0.6 % (0.0-10.0); %Lymphocytes 24.6 % (21.0-51.0); %Monocytes 5.1 % (0.0-10.0); %Neutrophils 69.1 % (42.0-75.0); Hemoglobin 13.7 g/dL (12.0-16.0); Mean Corpuscular HGB CONC 33.8 g/dL (32.0-36.0); Mean Corpuscular Hemoglobin 32.9 pg (27.0-31.0); Mean Corpuscular Volume 97.3 fl (78.0-98.0); Mean Platelet Volume 10.2 fL (7.4-10.4); Platelet Count 171 10x3/uL (130-400); Red Blood Cell (RBC) Count 4.17 mill/uL (4.20-5.40); White Blood Cell (WBC) Count 5.2 10x3/uL (4.8-10.8)
[2022-12-25 07:41] LABS: Base Excess-Venous -0.8 mmol/L (-2.0 to 3.0); Bicarbonate (HCO3v) 24.7 mmol/L (22.0-28.0); CO2 Tension (PvCO2) 42.5 mmHg (42.0-51.0); Calcium, Ionized 1.27 mmol/L (1.15-1.33); Chloride 105 mmol/L (98-107); Hemoglobin - Calc 14.4 g/dL (12.0-16.0); Potassium 3.4 mmol/L (3.5-5.1); Sodium 142 mmol/L (138-145); vO2 Saturation-calc 79.1 % (60.0-85.0)
[2022-12-25 07:45] LABS: Anion Gap 12 mmol/L (10-20); BUN (Urea Nitrogen) 11 mg/dL (9.8-20.1); Calc. Creatinine Clearance 0 mL/min (70-130); Calcium 10.4 mg/dL (7.8-10.44); Carbon Dioxide 24 mmol/L (23-31); Chloride 106 mmol/L (98-107); Estimated GFR 82; Glucose 107 mg/dL (80-115); Potassium 3.7 mmol/L (3.5-5.1); Sodium 138 mmol/L (136-145)
[2022-12-25 07:46] LABS: ALT (SGPT) 319 U/L (8-55); AST (SGOT) 923 U/L (5-34); Alkaline Phosphatase 170 U/L (40-110); Bilirubin, Total 0.5 mg/dL (0.2-1.2); Globulin 3.1 g/dL (2.4-3.5); Protein, Total 7.1 g/dL (5.8-8.1)
[2022-12-25 07:47] LABS: Acetaminophen Less than 10.0 mcg/mL (10.0-30.0); Alcohol Less than 10 mg/dL (Less than 10); Magnesium 1.7 mg/dL (1.6-2.6); Salicylate Less than 8.0 mg/dL (15.0-30.0)
[2022-12-25] MEDS ORDERED: Sodium Chloride 0.9% 2,000 ML ONE (08:11)
[2022-12-25] MEDS ORDERED: Metoclopramide HCl 10 MG/2 ML VIAL ONE (08:30)
[2022-12-25] MEDS ORDERED: HYDROmorphone 0.5 MG/0.5 ML SYRINGE ONE (08:30)
[2022-12-25] MEDS ORDERED: diphenhydrAMINE 50 MG/ML VIAL ONE (08:30)
[2022-12-25] MEDS ORDERED: Ketorolac Tromethamine 30 MG/ML VIAL ONE (09:06)
[2022-12-25 09:11] LABS: Lipase 4428 U/L (8-78)
[2022-12-25 11:06] LABS: Bilirubin Negative (Negative); Blood, Urine Trace (Negative); Clarity Clear (Clear); Glucose, Urine (Dipstick) Negative (Negative); Ketone, Urine Negative (Negative); Leukocyte Negative (Negative); Nitrite Negative (Negative); Protein, Urine (Dipstick) Negative (Neg-Trace); Urobilinogen 0.2 mg/dL (Less than 2); pH, Urine 5.5 (5.0-9.0)
[2022-12-25 11:19] LABS: RBC/HPF None Seen HPF (0-3); WBC/HPF 0-3 HPF (0-3)
[2022-12-25 11:20] LABS: Bacteria/HPF Rare-Few HPF (None Seen); Squamous Epithelial 0-3 HPF (0-3)
[2022-12-25 11:21] LABS: Cocaine Metabolite Screen Detected (NotDetected); Methamphetamine Not Detected (NotDetected); Opiate Screen Detected (NotDetected); Phencyclidine (PCP) Not Detected (NotDetected); THC/Cannabinoid Screen Not Detected (NotDetected)
[2022-12-25 11:22] LABS: Amphetamine Not Detected (NotDetected); Barbiturates Screen Not Detected (NotDetected); Benzodiazepine Screen Not Detected (NotDetected); Methadone Not Detected (NotDetected); Oxycodone Screen Not Detected (NotDetected); Tricyclic Screen Not Detected (NotDetected)
== END 2022-12-25 11:55 | disposition short-term general hospital (02) ==
LOC: MADERS 06:41
DX: K80.42 Calculus of bile duct with acute cholecystitis without obstruction (principal); K85.90 Acute pancreatitis without necrosis or infection, unspecified; I11.0 Hypertensive heart disease with heart failure; I50.9 Heart failure, unspecified; K21.9 Gastro-esophageal reflux disease without esophagitis; F17.210 Nicotine dependence, cigarettes, uncomplicated; Z79.899 Other long term (current) drug therapy
CPT/HCPCS: 36415; 71045; 71275; 74174; 80053; 80306; 80307; 81003; 81015; 82330; 82803; 83605; 83690; 83735; 83880; 84484; 85025; 93005; 96361; 96374; 96375; J1170; J1200; J1885; J2270; J2765; J7050; Q0162

== ENCOUNTER 2023-01-23 17:06 | Emergency (ER) | payer MEDICARE ==
[2023-01-23] MEDS ORDERED: Aspirin Chewable 81 MG TAB ONE (17:52)
[2023-01-23 18:06] LABS: ALT (SGPT) 11 U/L (8-55); AST (SGOT) 16 U/L (5-34); Alkaline Phosphatase 89 U/L (40-110); Anion Gap 15 mmol/L (10-20); Anisocytosis SLIGHT = 6-15 cells (100X) (0-5/hpf); BUN (Urea Nitrogen) 9 mg/dL (9.8-20.1); Band 2 % (5-11); Bilirubin, Total 0.2 mg/dL (0.2-1.2); Calc. Creatinine Clearance 0 mL/min (70-130); Calcium 9.8 mg/dL (7.8-10.44); Carbon Dioxide 26 mmol/L (23-31); Chloride 105 mmol/L (98-107); Eosinophils 2 % (0-10); Estimated GFR 84; Globulin 3.2 g/dL (2.4-3.5); Glucose 93 mg/dL (80-115); Hemoglobin 13.6 g/dL (12.0-16.0); Lymphocytes 52 % (21-51); MDiff Complete? YES; Mean Corpuscular HGB CONC 33.6 g/dL (32.0-36.0); Mean Corpuscular Volume 95.2 fl (78.0-98.0); Mean Platelet Volume 9.4 fL (7.4-10.4); Monocytes 7 % (0-10); Neutrophil 32 % (42-75); Nucleated RBC (Manual Ct) 2 % (0); Platelet Count 236 10x3/uL (130-400); Platelet Morphology Comment Appears Adequate; Potassium 3.6 mmol/L (3.5-5.1); Protein, Total 7.2 g/dL (5.8-8.1); RBC Distribution Width 12.3 % (11.5-14.5); Reactive Lymphocytes 5 % (0-10); Red Blood Cell (RBC) Count 4.25 mill/uL (4.20-5.40); Sodium 142 mmol/L (136-145); White Blood Cell (WBC) Count 3.7 10x3/uL (4.8-10.8)
[2023-01-23] MEDS ORDERED: Nitroglycerin 2% Ointment 1 INCH/1 GM Packet ONE (18:27)
== END 2023-01-23 18:59 | disposition short-term general hospital (02) ==
LOC: MADERS 17:06
DX: R07.9 Chest pain, unspecified (principal); I10 Essential (primary) hypertension; K21.9 Gastro-esophageal reflux disease without esophagitis; E78.2 Mixed hyperlipidemia; F17.210 Nicotine dependence, cigarettes, uncomplicated; Z79.899 Other long term (current) drug therapy
CPT/HCPCS: 71045; 80053; 83880; 84484; 85025; 93005

== ENCOUNTER 2023-04-10 10:43 | Outpatient (CLI) | payer MEDICARE | END 2023-04-10 10:44 | disposition home or self-care (01) | LOC: MADLABBHPM 10:43 | PROVIDERS: ATTEND Nurse Practitioner Family | DX: Z20.822 Contact with and (suspected) exposure to COVID-19 (principal) | CPT/HCPCS: 87635 ==

== ENCOUNTER 2023-07-02 08:48 | Outpatient (CLI) | payer MEDICARE | END 2023-07-02 08:49 | disposition home or self-care (01) | LOC: MADEKG 08:48 | PROVIDERS: ATTEND Nurse Practitioner Family | DX: R07.89 Other chest pain (principal) | CPT/HCPCS: 93005; 93010 ==

== ENCOUNTER 2023-10-27 19:20 | Emergency (ER) | payer OTHER ==
[2023-10-27] MEDS ORDERED: Ibuprofen 600 MG TAB ONE (19:39)
== END 2023-10-27 20:54 | disposition home or self-care (01) ==
LOC: MADERS 19:20
DX: B34.9 Viral infection, unspecified (principal); I10 Essential (primary) hypertension; K21.9 Gastro-esophageal reflux disease without esophagitis; E78.2 Mixed hyperlipidemia; F17.210 Nicotine dependence, cigarettes, uncomplicated; Z79.899 Other long term (current) drug therapy
CPT/HCPCS: 87635; 87804; 99283

== ENCOUNTER 2023-11-19 13:27 | Outpatient (CLI) | payer OTHER | END 2023-11-19 13:28 | disposition home or self-care (01) | LOC: MADRAD 13:27 | PROVIDERS: ATTEND Family Medicine | DX: R20.2 Paresthesia of skin (principal); M54.2 Cervicalgia; M41.9 Scoliosis, unspecified; M25.78 Osteophyte, vertebrae; M47.812 Spondylosis without myelopathy or radiculopathy, cervical region; M47.816 Spondylosis without myelopathy or radiculopathy, lumbar region | CPT/HCPCS: 72040; 72072; 72100 ==

== ENCOUNTER 2024-05-28 12:21 | Emergency (ER) | payer MEDICARE ==
[2024-05-28 13:10] LABS: SARS-CoV-2 E Target Positive; SARS-CoV-2 N2 Target Positive; SARS-CoV-2 NAA Rapid Test DETECTED (NotDetected); SARS-CoV-2 RdRP gene Positive
[2024-05-28] MEDS ORDERED: Ondansetron ODT 4 MG TAB ONE (13:49)
[2024-05-28] MEDS ORDERED: Acetaminophen 325 MG TAB ONE (13:49)
== END 2024-05-28 13:51 | disposition home or self-care (01) ==
LOC: MADERS 12:21
DX: U07.1 COVID-19 (principal); I11.0 Hypertensive heart disease with heart failure; I50.9 Heart failure, unspecified; K21.9 Gastro-esophageal reflux disease without esophagitis; E78.2 Mixed hyperlipidemia; Z79.899 Other long term (current) drug therapy
CPT/HCPCS: 71046; 87804; Q0162; U0002

== ENCOUNTER 2025-09-08 15:24 | Emergency (ER) | payer MEDICARE, OTHER ==
[~2025-09-08 15:24] MED LIST changes: +Lisinopril 10 MG TAB ONE; -NS 0.9% w/ 20 MEQ KCL 1,000 ML BAG ONE
[2025-09-08 16:41] LABS: Hematocrit 45.9 % (36.0-47.0); Hemoglobin 14.2 g/dL (12.0-16.0); Mean Corpuscular Hemoglobin 29.3 pg (27.0-31.0); Mean Corpuscular Volume 94.7 fl (78.0-98.0); Platelet Count 305 10x3/uL (130-400); Red Blood Cell (RBC) Count 4.85 mill/uL (4.20-5.40); White Blood Cell (WBC) Count 5.0 10x3/uL (4.8-10.8)
[2025-09-08 16:49] LABS: ALT (SGPT) 24 U/L (Less than 34); AST (SGOT) 25 U/L (11-34); Albumin 3.8 g/dL (3.1-4.5); Alkaline Phosphatase 103 U/L (40-110); Anion Gap 16 mmol/L (10-20); BUN (Urea Nitrogen) 5 mg/dL (9.8-20.1); Bilirubin, Total 0.3 mg/dL (0.3-1.2); Calc. Creatinine Clearance 0 mL/min (70-130); Calcium 9.8 mg/dL (7.8-10.44); Carbon Dioxide 21 mmol/L (23-31); Chloride 102 mmol/L (98-107); Globulin 4.2 g/dL (2.4-3.5); Magnesium 1.7 mg/dL (1.6-2.6); Potassium 3.6 mmol/L (3.5-5.1); Sodium 135 mmol/L (136-145); Troponin I Less than 0.010 ng/mL (< 0.028)
[2025-09-08 16:50] LABS: Glucose 570 mg/dL (80-115); Manual Diff?? YES
[2025-09-08 16:51] LABS: MDiff Complete? YES; Platelet Adequacy Comment Appears Adequate
[2025-09-08] MEDS ORDERED: Aspirin Chewable 81 MG TAB ONE (17:30)
[2025-09-08] MEDS ORDERED: Lisinopril 10 MG TAB PO SCH (23:30)
== END 2025-09-09 00:27 | disposition short-term general hospital (02) ==
LOC: MADERS 15:24
DX: I63.9 Cerebral infarction, unspecified (principal); E11.65 Type 2 diabetes mellitus with hyperglycemia; E86.0 Dehydration
CPT/HCPCS: 36416; 70450; 71045; 80053; 83735; 83880; 84484; 85025; 93005; 96361; 96374; J1815; J7030